=== PATIENT | female | born 1945 | race Two or more races ===

== ENCOUNTER 2016-12-25 11:14 | Day surgery (SDC) | payer OTHER, MEDICAID ==
[2016-12-25] MEDS ORDERED: MARCAINE 0.25% INJ ONE (13:14)
--- NOTE | 2016-12-25 13:20 | DR.UPDATE ---
H&P Update History and Physical Update: History and Physical reviewed and patient examined. Changes noted: NO Yes with the following:Agree with H&P from Dr Brantley. Will inject around screws L4-5.
[2016-12-25] MEDS ORDERED: XYLOCAINE 1 % (PLAIN) ONE (13:25)
[2016-12-25 13:58] VITALS: BP 157/72
== END 2016-12-25 14:04 | disposition home or self-care (01) ==
LOC: SURG1 11:14
PROVIDERS: ATTEND Specialist
PROC: 3E023BZ Introduction of Anesthetic Agent into Muscle, Percutaneous Approach (ICD-10-PCS; 2016-12-25)
PROC: 3E0233Z Introduction of Anti-inflammatory into Muscle, Percutaneous Approach (ICD-10-PCS; principal; 2016-12-25 12:00)
DX: M47.816 Spondylosis without myelopathy or radiculopathy, lumbar region (principal)
CPT/HCPCS: 20553; 76000; 77002; S0020; J2001

== ENCOUNTER 2017-01-15 13:05 | Day surgery (SDC) | payer OTHER, MEDICAID ==
[2017-01-15] MEDS ORDERED: KENALOG INJ 40 MG IM ONE (13:23)
[2017-01-15] MEDS ORDERED: MARCAINE 0.25% INJ ONE (13:23)
--- NOTE | 2017-01-15 13:27 | DR.UPDATE ---
H&P Update History and Physical Update: History and Physical reviewed and patient examined. Changes noted: NO Yes with the following:Agree with H&P from Dr Brantley. will perform L3-4 GARRISON right side
[2017-01-15 14:10] VITALS: BP 185/82
== END 2017-01-15 14:05 | disposition home or self-care (01) | DRG 552 ==
LOC: SURG1 13:05
PROVIDERS: ATTEND Orthopaedic Surgery
PROC: 3E0R3BZ Introduction of Anesthetic Agent into Spinal Canal, Percutaneous Approach (ICD-10-PCS; 2017-01-15)
PROC: 3E0R33Z Introduction of Anti-inflammatory into Spinal Canal, Percutaneous Approach (ICD-10-PCS; principal; 2017-01-15 13:15)
DX: M51.36 Other intervertebral disc degeneration, lumbar region (principal); M47.816 Spondylosis without myelopathy or radiculopathy, lumbar region
CPT/HCPCS: 62323; S0020; J3301

== ENCOUNTER 2017-04-28 13:02 | Day surgery (SDC) | payer OTHER, MEDICAID ==
[2017-04-28] MEDS ORDERED: KENALOG INJ 40 MG IM ONE (13:22)
[2017-04-28] MEDS ORDERED: XYLOCAINE 1 % (PLAIN) ONE (13:22)
--- NOTE | 2017-04-28 13:22 | DR.UPDATE ---
H&P Update History and Physical Update: History and Physical reviewed and patient examined. Changes noted: NO Yes with the following:agree with H&P from Dr Brantley. will proceed with lumbar guillaume L3-4 with flouroscopic guidance
[2017-04-28] MEDS ORDERED: XYLOCAINE-MPF 1% ONE (13:23)
[2017-04-28] MEDS ORDERED: MARCAINE 0.25% INJ ONE (13:23)
[2017-04-28 13:49] VITALS: BP 152/81
== END 2017-04-28 13:51 | disposition home or self-care (01) | DRG 552 ==
LOC: SURG1 13:02
PROVIDERS: ATTEND Specialist
PROC: 3E0R3BZ Introduction of Anesthetic Agent into Spinal Canal, Percutaneous Approach (ICD-10-PCS; 2017-04-28)
PROC: 3E0R33Z Introduction of Anti-inflammatory into Spinal Canal, Percutaneous Approach (ICD-10-PCS; principal; 2017-04-28 13:00)
DX: M48.061 Spinal stenosis, lumbar region without neurogenic claudication (principal)
CPT/HCPCS: 62323; 76000; S0020; J2001; J3301